=== PATIENT | female | born 1965 | race African-American/Black ===

== ENCOUNTER 2025-02-28 12:32 | Emergency (ER) | payer SELFPAY ==
[~2025-02-28] VITALS: Ht 154.9 cm; Wt 102.0 kg
[2025-02-28 13:11] VITALS: TEMP 98.5
[2025-02-28 18:01] VITALS: BP 111/82; PULSE 62; RESP 18; O2SAT 100
== END 2025-02-28 18:31 | disposition home or self-care (01) ==
LOC: EMS 12:39
DX: M72.2 Plantar fascial fibromatosis (principal); E78.00 Pure hypercholesterolemia, unspecified; I11.9 Hypertensive heart disease without heart failure; M19.90 Unspecified osteoarthritis, unspecified site; Z98.890 Other specified postprocedural states; Z88.6 Allergy status to analgesic agent
CPT/HCPCS: 99284; 73610-TC; 73630-TC; Z7502